=== PATIENT | male | born 1980 | race Caucasian/White ===

== ENCOUNTER 2017-01-20 09:21 | Inpatient (IN) | payer OTHER ==
--- NOTE | 2017-01-20 09:40 | CPEKG ---
Heart Rate: 60 RR Interval: 1000 P-R Interval: 132 QRSD Interval: 98 QT Interval: 432 QTC Interval: 432 P [place]: 67 QRS [place]: 19 T Wave [place]: -18 EKG Severity - ABNORMAL ECG - EKG Impression: SINUS RHYTHM EKG Impression: NONSPECIFIC REPOL ABNORMALITY, INFERIOR LEADS Electronically Signed By: Steve Spivey 20-Jan-2017 15:22:51
[2017-01-20 09:49] LABS: % IMMATURE GRANULYOCYTES 0.3 % (0.0-1.1); ABSOLUTE IMMATURE GRANULOCYTES 0.03 10^3/uL (0.00-0.10); ADD DIFF? NO; ADD MORPH? NO; ADD SCAN? YES; ATYPICAL LYMPHOCYTE FLAG 50 (0-99); FRAGMENT RBC FLAG 0 (0-99); HEMATOCRIT 45.5 % (40.0-51.0); HEMOGLOBIN 15.7 g/dL (13.7-17.5); LEFT SHIFT FLG 0 (0-99); LIPEMIA HEMOLYSIS FLAG 90 (0-99); MEAN CELL HEMOGLOBIN 30.5 pg (27.9-34.1); MEAN CELL HEMOGLOBIN CONCENTR. 34.5 g/dL (32.4-36.7); MEAN CELL VOLUME 88.5 fL (81.5-99.8); MEAN PLATELET VOLUME 10.1 fL (8.7-11.7); PLATELET CLUMPS FLAG 10 (0-99); PLATELET COUNT 211 10^3/uL (150-400); RED BLOOD CELL COUNT 5.14 10^6/uL (4.40-6.38); RED CELL DISTRIBUTION WIDTH 12.6 % (11.5-15.2)
--- NOTE | 2017-01-20 10:00 | EDPHY ---
General - History Smoking Status: Former smoker Narrative: CHIEF COMPLAINT: Chest pain HISTORY OF PRESENT ILLNESS: Patient complains of right-sided chest pain. This started 7:30 a.m. this morning. It was severe at the time. Radiates into the right arm and back. Steadily worsening over the past 2 hr. Mild shortness of breath. No cough at this time. Did have a recent viral illness this week. No vomiting but he did have some nausea. No diaphoresis. No recent travel, trauma or surgery. No history of venous thrombolic event. No previous chest pain. No previous cardiac workup. No other associated complaints or modifying factors. REVIEW OF SYSTEMS: Ten systems reviewed and are negative unless otherwise noted in the HPI PCP: Not yet established SPECIALISTS: None PAST MEDICAL HISTORY: None PAST SURGICAL HISTORY: None SOCIAL HISTORY: Former smoker 15 years ago. Occasional alcohol. Occasional marijuana. Originally from the . Most recently moved from [place] in September. 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 No wheezing, rhonchi or crackles Cardiovascular: Regular rate and rhythm. No murmur Gastrointestinal: Abdomen is soft and nontender Back: non-tender, no bony abnormalities Neurological: A&O, nonfocal, normal gait Skin: Warm and dry, no rash. No petechiae or purpura Extremities: Nontender, no pedal edema Psychiatric: Mood and affect normal DIFFERENTIAL DIAGNOSES: Including but not limited to ACS, pneumonia, PE, pleurisy, pericarditis MDM: 9:55 a.m. Right-sided chest pain with nonspecific repolarization on EKG. Vital signs are within normal limits. Auscultation is clear. Laboratory studies are pending. Case discussed with Dr. Spivey. awake overnight monitor ordered. 10:[address] Spivey that the patient's troponin is elevated. He has initiated a cardiac alert. He is evaluating the patient at this time. He is soon care the patient this time. Aspirin has been ordered. Please see his note for further care and disposition. EKG interpretation: Dr. Spivey SUPERVISION: Patient was evaluated and examined in conjunction with my secondary supervising physician as documented. We have both examined the patient. (Win Guadalupe) 10:20 a.m., notified about patient's elevated troponin. EKG reviewed. EKG shows subtle ST elevations in lead 1 and lead aVL with ST depression noted in 3 and AVF. Cardiac alert called. I evaluated the patient at the bedside. He received 324 mg of chewed aspirin. IV heparin ordered. Discussed diagnosis and plan of management with the patient. 10:30 a.m., spoke with Dr. Joe, mems process engineer. He evaluated the EKG. He is in agreement. He spoke with on-call biomass production manager Dr. Pantoja. Dr. Pantoja requested IV heparin and 600 mg of oral Plavix. This has been ordered. Dr. Pantoja plans to take this patient to the school laboratory technician shortly. There is currently a patient on the table finishing a pacemaker procedure. While in the ED, the patient will get an echocardiogram. However, his time to school laboratory technician will not be delayed for this study. 10:45 a.m., Dr. Joe, mems process engineer, currently at the bedside discussing management with patient. The patient at this time denies any chest pain. IV heparin is running. Plavix to be given shortly. 11:00 a.m., the patient was sent up to the cath lap with mems process engineer, Dr. Kang at the bedside. I spent a total of 42 minutes of critical care time in obtaining history, performing a physical exam, bedside monitoring of interventions, collecting and interpreting tests and discussion with consultants but not including time spent performing procedures. (Steve Spivey) - Diagnostics EKG Interpretation: EKG time is 9:39 a.m.; EKG shows a narrow complex sinus rhythm with ventricular rate of 60. ST elevations noted in [address] depressions in 3 and AVF. There is also a subtle ST depression in V1. Interpreted by me. (Steve Spivey) - Objective Vital Signs: Initial Vital Signs Temperature (C) 36.3 C 01/20/17 09:24 Heart Rate 63 01/20/17 09:24 Respiratory Rate 16 01/20/17 09:24 Blood Pressure 115/100 H 01/20/17 09:24 O2 Sat (%) 100 01/20/17 09:24 O2 Delivery Mode Room Air O2 (L/minute) 2 Allergies/Adverse Reactions: No Known Allergies Allergy (Unverified 01/20/17 09:28) Home Medications: Medication Instructions Recorded NK [No Known Home Meds] 01/20/17 Laboratory Results: Laboratory Results 01/21/17 04:52 01/21/17 04:52 01/21/17 06:03 TSH 4.780 uIU/mL H uIU/mL (0.465-4.680) Medications Given: Aspirin (Aspirin) 81 mg PO DAILY [facility] Stop: 07/20/17 08:59 Last Admin: 01/21/17 09:13 Dose: 81 mg Atorvastatin Calcium (Lipitor) 20 mg PO DAILY [facility] Stop: 07/20/17 08:59 Last Admin: 01/21/17 09:14 Dose: 20 mg Clopidogrel Bisulfate (Plavix) 75 mg PO DAILY [facility] Stop: 07/20/17 08:59 Last Admin: 01/21/17 09:14 Dose: 75 mg Discontinued Medications Aspirin (Aspirin) 324 mg PO EDNOW ONE Stop: 01/20/17 10:32 Last Admin: 01/20/17 10:49 Dose: 324 mg Aspirin (Aspirin) 324 mg PO EDNOW ONE Stop: 01/20/17 10:32 Last Admin: 01/20/17 10:54 Dose: Not Given Clopidogrel Bisulfate (Plavix) 600 mg PO EDNOW ONE Stop: 01/20/17 10:40 Last Admin: 01/20/17 10:51 Dose: 600 mg Heparin Sodium (Porcine) (Heparin Injection) 0 unit IVP EDNOW ONE PRN Reason: Protocol Stop: 01/20/17 10:33 Last Admin: 01/20/17 10:43 Dose: 4,200 i.unit Heparin Sodium (Porcine) (Heparin 50 Units/Ml (Premix)) 500 mls @ 0 mls/hr IV EDNOW ONE; Per Protocol PRN Reason: Protocol Stop: 01/20/17 10:33 Last Admin: 01/20/17 10:48 Dose: 500 mls Departure - Departure Disposition: To OP Cath/Surgery Clinical Impression: ST elevation VA (STEMI) Qualifiers: Involved coronary artery: unspecified coronary artery Qualified Code(s): I21.3 - ST elevation (STEMI) myocardial infarction of unspecified site Condition: Fair
[2017-01-20 10:12] LABS: ALANINE AMINOTRANSFERASE 43 IU/L (21-72); ALBUMIN 4.2 g/dL (3.5-5.0); ALKALINE PHOSPHATASE 54 IU/L (38-126); ANION GAP 15 mEq/L (8-16); ASPARTATE AMINOTRANSFERASE 32 IU/L (17-59); BILIRUBIN,TOTAL 0.4 mg/dL (0.1-1.4); CALCIUM 9.4 mg/dL (8.5-10.4); CARBON DIOXIDE 24 mEq/l (22-31); CHLORIDE 104 mEq/L (97-110); GLOMERULAR FILTRATION RATE > 60; GLUCOSE 136 mg/dL (70-100); POTASSIUM 4.3 mEq/L (3.5-5.2); SODIUM 143 mEq/L (134-144)
[2017-01-20 10:19] LABS: SCAN NEGATIVE
[2017-01-20] MEDS ORDERED: ASPIRIN 81 MG CHEWABLE TAB PO ONE ×2 (10:31)
[2017-01-20] MEDS ORDERED: ASPIRIN 81 MG CHEWABLE TAB ONE (10:32)
[2017-01-20] MEDS ORDERED: HEPARIN/DEXTROSE 500 ML IV ONE (10:32)
[2017-01-20] MEDS ORDERED: HEPARIN 10,000 UNIT/10 ML MDV IVP ONE (10:32)
[2017-01-20] MEDS ORDERED: CLOPIDOGREL BISULFATE 75 MG TAB PO ONE (10:39)
[2017-01-20] MEDS ORDERED: LIDOCAINE 1% 300 MG/30 ML SDV ONE (10:42)
[2017-01-20] MEDS ORDERED: IOPAMIDOL (ISOVUE-370) 150 ML BTL IV ONE (10:42)
[2017-01-20] MEDS ORDERED: fentaNYL 100 MCG/2 ML INJ ONE (10:42)
[2017-01-20] MEDS ORDERED: MIDAZOLAM 2 MG/2 ML VIAL ONE ×2 (10:42)
[2017-01-20] MEDS ORDERED: CLOPIDOGREL BISULFATE 75 MG TAB ONE (10:52)
[2017-01-20 11:14] LABS: APTT 32.9 SEC (23.0-38.0); INR 1.05 (0.83-1.16); PROTIME(PATIENT) 13.9 SEC (12.0-15.0)
[2017-01-20] MEDS ORDERED: HEPARIN 10,000 UNIT/10 ML MDV ONE (11:23)
[2017-01-20] MEDS ORDERED: IOPAMIDOL (ISOVUE 370) 100 ML BTL IV ONE (11:36)
--- NOTE | 2017-01-20 11:40 | GHP ---
[f rep st] HISTORY AND PHYSICAL DATE OF ADMISSION: 01/20/2017 CHIEF COMPLAINT: Right-sided chest pressure x3 and 0.5 hours, consistent with lateral MA. HISTORY OF PRESENT ILLNESS: The person is a 36-year-old gentleman with no previous cardiac problems. He has had migraines during his life. Normally, he can hike 2-3 miles with his or bicycle for 30 minutes with no problems. This morning, he awoke at 7:30 a.m. with right-sided chest pressure. He came to the emergency room and his initial EKG demonstrated ST elevation in the high lateral leads with reciprocal 2-[address] depression in the inferior leads. His 1st troponin was 4.8. He is curren tly still having 2/10 chest pressure and is quite anxious. He denies illicit drug use such as cocain e or methamphetamine use. He has no personal history of hypertension, hyperlipidemia, or diabetes. No family history of premature coronary artery disease. He reports no recent bleeding or surgeries. PAST MEDICAL HISTORY: Migraines. PAST SURGICAL HISTORY: None. HOME MEDICATIONS: None. ALLERGIES: No known drug allergies. SOCIAL HISTORY: The patient is . He quit tobacco 15 years ago. He has an occasional marijua na use. He denies illicit drugs such as cocaine or methamphetamine. He has rare alcohol intake. FAMILY HISTORY: Unremarkable for premature heart failure or clotting disorders. REVIEW OF SYSTEMS: The patient reports no headache, fevers, chills or GI bleed symptoms. Rest of 10 -point review of systems is negative. PHYSICAL EXAM: GENERAL: An anxious gentleman with 2/10 chest pain, tearful, but in no respiratory d istress. VITAL SIGNS: Pulse 115 and sinus, blood pressure 129/57, respirations 24. HEENT: Jugular venous pressure to 7 cm. Carotid pulses 2+ bilaterally with no obvious bruits. No thyromegaly note d. No nuchal rigidity. No cyanosis of his lips, or jaundice. LUNGS: Clear to auscultation bilater ally without rales, rhonchi, or wheezing. HEART: Heart is slightly tachycardic. Regular rate and r hythm with positive S4, but no murmurs or S3. ABDOMEN: Abdominal exam is soft and nontender. No gu arding or rebound. No ascites. EXTREMITIES: 2+ peripheral pulses, including femoral and pedal puls es. No edema noted. MUSCULOSKELETAL: No scoliosis. NEURO: Anxious affect. SKIN: No bleeding or cyanosis. DIAGNOSTIC STUDIES: EKG normal sinus rhythm with [address] elevation in lead 1 and aVL, 2-3 mm of S T depression in the inferior leads. LABS: White count 10.9, hematocrit 46, platelets 211,000, MCV 89. Sodium 143, potassium 4.3, chlori de 104, bicarb 24, BUN 14, creatinine 1.0, glucose 136. LFTs within normal limits. Troponin 4.8. IMPRESSION: A 36-year-old gentleman with only past medical history of migraines, with 3 and 0.5 hour s of right-sided chest pain and abnormal ST elevation, EKG consistent with lateral myocardial infarct ion. I am concerned he has coronary obstruction and needs to go to the woven label designer. PLAN: 1. We will give him Plavix 600 mg p.o. x1 in the emergency room. 2. We will give him aspirin 325 mg p.o. x1. 3. We will give him 1 bolus of heparin. 4. We will take him urgently to the woven label designer from the emergency room for coronary angiography and ho peful stenting of the culprit vessels. 5. We will check a urine tox screen during this hospitalization, and cholesterol levels. 6. More recommendations once heart catheterization is done. Risks, benefits, and alternatives to ca theterization were explained to the patient and he wishes to proceed. /[id number]/MODL
[2017-01-20] MEDS ORDERED: ONDANSETRON 4 MG/2 ML VIAL IVP PRN (11:45)
[2017-01-20] MEDS ORDERED: ATROPINE SULFATE 1 MG/10 ML SYR IVP PRN (11:45)
[2017-01-20] MEDS ORDERED: NITROGLYCERIN 0.4 MG BTL SL PRN (11:45)
[2017-01-20] MEDS ORDERED: HYDROCODONE/APAP 5/325 TAB PO PRN (11:45)
[2017-01-20] MEDS ORDERED: OXYCODONE/APAP 5/325 TAB PO PRN (11:45)
--- NOTE | 2017-01-20 12:10 | ASMTCASEMG ---
Living Arrangements What is your living Answers: With Spouse arrangement? Who do you live with? Type Of Residence What kind of residence do Answers: Unknown you live in? Discharge Plan Comments Coordination Status Comments Notes: Patient lives with his Francia Zepeda and three young children here in [place]; recently moved here from [facility] in September. Originally from the . Date Signed: 01/20/2017 12:10 PM Electronically Signed By:Michelle Em RN
--- NOTE | 2017-01-20 12:22 | CPIP ---
[f rep st] INVASIVE CARDIAC PROCEDURE DATE OF PROCEDURE: 01/20/2017 INDICATION FOR PROCEDURE: STEMI alert. PROCEDURE PERFORMED: 1. Nonselective right groin sheathogram. 2. Bilateral selective coronary angiography. 3. Left heart catheterization. 4. Left ventriculogram. BRIEF HISTORY: This is a 36-year-old male with no significant past medical history. Patient says he woke up this morning with significant crushing chest pain. The patient came to the emergency room for further evaluation, was found to have elevated troponins of 4.[address] elevations in I, aVL as well as inferior ST depressions in II, III and aVF. Given these findings, patient was consented for immediate heart catheterization. DESCRIPTION OF PROCEDURE: After informed consent, the patient was brought to [facility] where the right groin was prepped and draped in a sterile fashion. Using local lidocaine, a short 6-Norwegian sheath was placed in the right femoral artery , verified angiographically. Through this 6-Norwegian sheath, a JL4 catheter was advanced to the right coronary artery. Images of the right coronary artery revealed widely patent os, proximal, mid, distal RCA, RPD and RPLS. The JL4 catheter was then removed. An EBU 3.5 guide catheter was then advanced to the left coronary artery which then revealed short, normal left main. Left circumflex artery appeared to be healthy and free of disease and branched off into a marginal 1, marginal 2 artery. The LAD was a long vessel which wraps around the apex. The LAD gave off multiple diagonal arteries which were small, other than 1 medium size one in the midbody, and all were healthy and free of disease. The LAD itself terminated to a distal vessel which was healthy and free of disease. After obtaining images, the EBU guide catheter was removed. A pigtail catheter was advanced to the left ventricle. LVEDP is 15 mmHg. Left ventriculogram obtained in the SAENZ projection showed EF of 65% with no wall motion abnormalities. No pullback gradient into the aorta. Pigtail catheter was removed over the guidewire. Right groin was closed with a 6-Norwegian Angio- Seal. The patient tolerated the procedure well. No complications. IMPRESSION: 1. Essentially normal coronary arteries. 2. Normal ejection fraction. PLAN: Given the fact the patient has had significant discomfort, obviously elevated troponins and ST elevations, we will obtain a stat CTA of the chest to rule out any other aortic pathology. The patient will be admitted to ICU for further evaluation. /[id number]/MODL MTDD
--- NOTE | 2017-01-20 12:22 | ASMTCMCOM ---
CM Note CM Note Notes: Patient presented to the ED from [facility] for right sided chest pain that started this morning. Patient admitted for cardiac monitoring and further assessment. Patient's troponin was elevated and EKG was abnormal. Patient was assessed by Dr Joe in the ED and taken to the mechanical shop laborer with Dr. Abdul. Patient had called his , Francia Zepeda ([phone]) from the ED and she arrived with her three young children (a 5-year-old boy and 2-year-old twins (boy and girl) shortly after patient had already transported to the mechanical shop laborer. This CM met Francia at the ED entrance and assisted her to the ICU waiting area; provided support and updates on patient's status and plan of care. Children were provided coloring books, crayons, juices, and crackers. Francia said she would like to speak to someone from our Spiritual Support Services so this CM paged the on-call Jewel Inserter, Carmine Villavicencio; he will arrive shortly to provide non-taoism support. Francia and the patient recently moved to [place] from [facility] in September. Originally they are from the . 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 Anticipate patient may need a PCP, follow-up coordination with cardiology. Exact DC needs unknown. CM to follow. Date Signed: 01/20/2017 12:22 PM Electronically Signed By:Michelle Em RN
[2017-01-20 15:48] LABS: PHENCYCLIDINE URINE BCH < 6 ng/ml (NEGATIVE); PHENCYCLIDINE URINE BCH NEGATIVE (NEGATIVE); TETRAHYDROCANNABINOL URINE < 5 ng/mL (NEGATIVE); TETRAHYDROCANNABINOL URINE NEGATIVE (NEGATIVE)
[2017-01-21 05:10] LABS: HEMATOCRIT 45.5 % (40.0-51.0); HEMOGLOBIN 15.8 g/dL (13.7-17.5); MEAN CELL HEMOGLOBIN 30.3 pg (27.9-34.1); MEAN CELL HEMOGLOBIN CONCENTR. 34.7 g/dL (32.4-36.7); MEAN CELL VOLUME 87.3 fL (81.5-99.8); RED BLOOD CELL COUNT 5.21 10^6/uL (4.40-6.38); RED CELL DISTRIBUTION WIDTH 12.6 % (11.5-15.2)
[2017-01-21 05:32] LABS: ALANINE AMINOTRANSFERASE 43 IU/L (21-72); ALBUMIN 3.8 g/dL (3.5-5.0); ALKALINE PHOSPHATASE 49 IU/L (38-126); ANION GAP 13 mEq/L (8-16); ASPARTATE AMINOTRANSFERASE 70 IU/L (17-59); BILIRUBIN,TOTAL 0.5 mg/dL (0.1-1.4); CALCIUM 9.3 mg/dL (8.5-10.4); CARBON DIOXIDE 23 mEq/l (22-31); CHLORIDE 106 mEq/L (97-110); CREATININE 0.8 mg/dL (0.7-1.3); GLOMERULAR FILTRATION RATE > 60; GLUCOSE 98 mg/dL (70-100); POTASSIUM 4.2 mEq/L (3.5-5.2); SODIUM 142 mEq/L (134-144); TOTAL PROTEIN 6.7 g/dL (6.3-8.2)
--- NOTE | 2017-01-21 08:59 | PDCARPN ---
Cardiology Progress Note Chief Complaint: CP/STEMI Assessment/Plan: Assessment: STEMI w/o CAD Plan: 01/21/17 08:56 Pt had essentially normal cath with CTA that showed no dissection Check echo today Possibly transient thrombus/embolus to coronary Start plavix/ASA Start statin No BB given low BP OOB Tox screen normal (+benzo but pt received in lab) Reviewed/Discussed With: other (RN) Time Spent With Patient: 25 min Objective: Vital Signs (8 Hrs) Temp Pulse Resp BP Pulse Ox 01/21/17 07:30 36.7 C 97 17 104/71 96 Intake/Output (24 Hrs) 01/20/17 01/21/17 01/22/17 05:59 05:59 05:59 Intake Total 300 Output Total 700 Balance -400 Intake: Oral (ml) 300 Output: Urine (ml) 700 Urinal 700 Other: Weight 70.307 kg Number of Voids Urinal 3 Result Diagrams: 01/21/17 04:52 01/21/17 04:52 Cardiac Labs: Cardiac Lab Results (72 Hrs) 01/21/17 01/20/17 04:52 17:00 Troponin I 8.020 H 20.100 H - Physical Exam Constitutional: healthy appearing Eyes: PERRL Ears, Nose, Mouth, Throat: moist mucous membranes Cardiovascular: regular rate and rhythm Peripheral Pulses: 1+: femoral (R), femoral (L) Respiratory: clear to auscultate bilat Gastrointestinal: normoactive bowel sounds Genitourinary: no suprapubic tenderness Skin: no rashes Musculoskeletal: no muscular tenderness Neurologic: AAOx3 Psychiatric: cooperative Lymph, Heme, Immunologic: no lymphadenopathy ICD10 Worksheet Patient Problems: Problems Problem Status Onset ST elevation [place] (STEMI) Acute
[2017-01-21] MEDS: ASPIRIN 81 MG CHEWABLE TAB PO SCH (09:13)
[2017-01-21] MEDS: ATORVASTATIN CALCIUM 20 MG TAB PO SCH (09:14)
[2017-01-21] MEDS: CLOPIDOGREL BISULFATE 75 MG TAB PO SCH (09:14)
[2017-01-21 09:15] LABS: ALANINE AMINOTRANSFERASE 44 IU/L (21-72); ALKALINE PHOSPHATASE 54 IU/L (38-126); ASPARTATE AMINOTRANSFERASE 71 IU/L (17-59); BILIRUBIN,TOTAL 0.4 mg/dL (0.1-1.4); BILIRUBIN-CONJUGATED 0.2 mg/dL (0.0-0.5); BILIRUBIN-UNCONJUGATED 0.2 mg/dL (0.0-1.1); CHOLESTEROL 124 mg/dL (140-200); CHOLESTEROL/HDL RATIO 4.96 RATIO (1.00-4.97); HIGH DENSITY LIPOPROTEIN 25 mg/dL (40-65); LDL/HDL RATIO 3.36 RATIO (1.00-3.64); LOW DENSITY LIPOPROTEIN 84 mg/dL (70-100); NON-HIGH DENSITY LIPOPROTEIN 99 mg/dL (90-129); TOTAL PROTEIN 7.1 g/dL (6.3-8.2); TRIGLYCERIDE 75 mg/dL (40-150); VERY LOW DENSITY LIPOPROTEINS 15 mg/dL (8-25)
[2017-01-21] MEDS: ACETAMINOPHEN 325 MG TAB PO PRN (22:00)
[2017-01-22] MEDS: CLOPIDOGREL BISULFATE 75 MG TAB PO SCH (08:22)
[2017-01-22] MEDS: ASPIRIN 81 MG CHEWABLE TAB PO SCH (08:22)
[2017-01-22] MEDS: ACETAMINOPHEN 325 MG TAB PO PRN (08:22)
[2017-01-22] MEDS: ATORVASTATIN CALCIUM 20 MG TAB PO SCH (08:22)
[2017-01-22] MEDS ORDERED: FLU VACC QS 2017-18 (3YR+)/PF 0.5 ML SYR (FLUARIX QUAD) IM ONE (09:34)
--- NOTE | 2017-01-22 11:13 | ECHO ---
[email or web address] [address] [address] Main: [phone] Fax: [email or web address] Echocardiogram Name: NEDA HIGGINS MR#: [id number] Study Date: 01/21/2017 Study Time: 10:47 AM Date of : 1980 Age: 36 year(s) Height: 167.6 cm (66 in.) Weight: 70.31 kg (155 lb.) BSA: 1.79 m2 Gender: Male Examination: Echo Indication: CP/STEMI Image Quality: Contrast: Requested by: Remington Pantoja BP: 109 mmHg/61 mmHg Heart Rate: Rhythm: Indication: CP/STEMI Procedure Staff Crozer: Maria Guadalupe Delarosa Physician: Requesting Provider: Measurements: Chambers Valvular Assessment AV/MV Valvular Assessment TV/PV Normal Normal Normal Name Value Range Name Value Range Name Value Range Ao Malka (MM): 3.6 cm (2.2 cm-3.7 AV meanP mmHg ( - ) cm) MV E Vmax: 0.62 m/s ( - ) IVSd (2D): 1.0 cm (0.6 cm-1.1 MV A Vmax: 0.68 m/s ( - ) cm) MV E/A: 0.91 ( - ) LVDd (2D): 4.5 cm (4.2 cm-5.9 cm) LVDs (2D): 3.1 cm (2.1 cm-4 cm) LVPWd (2D): 1.1 cm (0.6 cm-1 cm) LVEF (MOD4): 73 % (>=55 %) Continued Measurements: Chambers Valvular Assessment AV/MV Name Value Name Value LADs: 3.2 cm MV E' Septal: 0.07 m/s LADs Lon.0 cm MV E/E' Septal: 8.50 LA Area: 9.2 cm2 MV E/E' Lateral: 5.50 Additional Vessels Name Value Ao Ascendin.1 cm Patient: NEDA HIGGINS Study Date: 01/21/2017 Page 1 of 2 10:47 AM Findings: Left Ventricle: Normal size left ventricle. No LV hypertrophy. Global hypercontractility of the left ventricle. EF is 73 %. No regional wall motion abnormality. Right Ventricle: Normal size right ventricle. Left Atrium: The left atrium is normal in size. Right Atrium: The right atrium is normal in size. Mitral Valve: The mitral valve is normal in appearance and function. Trivial mitral valve regurgitation. Aortic Valve: The aortic valve is normal in appearance and function. Mild aortic valve regurgitation is present. Tricuspid Valve: The tricuspid valve is normal in appearance and function. Trivial tricuspid valve regurgitation. Pulmonic Valve: The pulmonic valve is normal in appearance and function. Trivial pulmonic valve regurgitation. Aorta: The aorta is normal. Pericardium: No pericardial effusion. (No Signature Object) Patient: NEDA HIGGINS Study Date: 01/21/2017 Page 2 of 2 10:47 AM [id number]
--- NOTE | 2017-01-22 11:39 | CPEKG ---
Heart Rate: 89 RR Interval: 674 P-R Interval: 152 QRSD Interval: 90 QT Interval: 380 QTC Interval: 463 P [place]: 68 QRS [place]: 40 T Wave [place]: 41 EKG Severity - NORMAL ECG - EKG Impression: SINUS RHYTHM EKG Impression: COMPARED WITH 01/20/2017 AT 9:39 A.M., INFERIOR ST ABNORMALITIES AND ST EKG Impression: ELEVATION IN 1 AND AVL HAVE RESOLVED, ALTHOUGH AVL IS STILL MINIMALLY ELEVATED. Electronically Signed By: Brittany Washington 22-Jan-2017 17:24:53
[2017-01-22 11:43] VITALS: BP 110/74; PULSE 84; RESP 19; TEMP 97.3; O2SAT 95
--- NOTE | 2017-01-22 15:14 | GDS ---
[f rep st] DISCHARGE SUMMARY DISCHARGE DIAGNOSIS: Elevated troponin secondary to either transient thrombus/embolus versus coronar y vasospasm. HOSPITAL COURSE: For detailed H and P, please see prior dictation. Briefly, the patient is a 36-yea r-old male with a history of migraines, who presented to the hospital with angina and EKG concerning for a lateral CT. He felt well until about a week prior to his admission. At the time, he developed flu-like symptoms including fever and myalgias. He was starting to feel better on Sunday, but then awoke Sunday morning at 7 a.m. with chest pain radiating into his arms. This persisted for an hour , at which time he then decided to proceed to the ER. He was given aspirin in the ER, which did comp letely eliminate his discomfort. His EKG suggested a lateral CT and therefore, he was taken urgently to the cardiac catheterization laboratory by Dr. Remington Pantoja. He was found to have normal juanis naries with preserved ejection fraction of 65%. He was without significant disease. He was then sen t for a stat CTA of the chest to rule out pulmonary embolus and other aortic pathology. This was neg ative for pulmonary embolus or aortic dissection. The following day, an echocardiogram revealed preserved LV function with an ejection fraction of 73%. There were no significant valvular or wall motion abnormalities. He had ST changes on his EKG that resolved by repeat EKG the day of discharge. His troponin on admission was 4.75 and peaked at 20.1. Prior to discharge, his troponin trended down to 8.02. He has not had any further chest discomfort since admission to the hospital. He does have some mild tenderness over his right groin, which is c lean and intact without any evidence of hematoma or infection. PHYSICAL EXAMINATION: GENERAL: Patient appears in no acute distress. VITAL SIGNS: Blood pressure 110/74, heart rate 84, oxygen saturation of 95% on room air, afebrile. LUNGS: Clear to auscultation . No wheezes, rhonchi, or crackles auscultated. CARDIAC: Regular rate and rhythm without any signi ficant murmurs, rubs, or gallops appreciated. RIGHT GROIN: Where access was obtained for the angiog amado, is clean and intact without any evidence of infection or hematoma. LABORATORY: Total cholesterol 84, HDL 25, triglycerides 75. Troponin 4.75, 20.1, 8.02. DISCHARGE MEDICATIONS: Plavix 75 mg daily x1 month at a minimum, Lipitor 20 mg daily, aspirin 81 mg daily. PLAN: The patient was admitted to the hospital with angina and positive troponin, concerning for lat eral myocardial infarction. His angiogram was negative for significant coronary disease. The differ ential at this time includes a plaque rupture which was transient, versus vasospastic angina. He nolberto l be treated for myocardial infarction with aspirin, Plavix, and statin therapy. He was not started on a beta michaelle or ISAURO inhibitor secondary to hypotension. If he has persistent chest discomfort, consider adding an antianginal such as Norvasc 2.5 mg daily. He has been on a beta michaelle for migra jia in the past and this did cause hypotension. He has been given groin precautions and will follow up with Dr. Pantoja on February 07 at 10:45 a.m. The patient does have a history of migraines and has taken sumatriptan in the past. This can cause v asospastic angina and therefore, I have recommended he not take this. The last time he has needed to take it was over 6 months ago. Greater than 30 minutes was spent coordinating the patient's care and plan today. /[id number]/MODL
--- NOTE | 2017-01-22 15:30 | ASDISCHSUM ---
Discharge Information Plan Status:Home with No Needs Medically Cleared to Leave:01/21/2017 Discharge Date:01/22/2017 12:27 PM CM D/C Disposition:Home, Routine, Self-Care ADT D/C Disposition:Home, Routine, Self-Care Projected Discharge Date:01/22/2017 12:00 AM Transportation at D/C:Family Discharge Delay Reason: Follow-Up Date:01/22/2017 12:00 AM Discharge Slot: Final Diagnosis:STEMI Placement Information Patient Contact Information Contact Name:SEN Relationship: Address:[address] [place] Work Phone: [facility]:[place] Alternate Phone: [facility]/Zip Code:[place] [address] Email: Financial Information Financial Class:HMO and PPO Plans Primary Plan Desc:[employer] Primary Plan Number:[id number] Secondary Plan Desc: Secondary Plan Number: Assessment Information [facility] Initial CM Assessment Living Arrangements What is your living Answers: With Spouse arrangement? Who do you live with? Type Of Residence What kind of residence do Answers: Unknown you live in? Discharge Plan Comments Coordination Status Comments Notes: Patient lives with his Francia Zepeda and three young children here in [place]; recently moved here from [facility] in September. Originally from the . Date Signed: 01/20/2017 12:10 PM Electronically Signed By:Michelle Em RN [facility] CM Progress Note CM Note CM Note Notes: Patient presented to the ED from [facility] for right sided chest pain that started this morning. Patient admitted for cardiac monitoring and further assessment. Patient's troponin was elevated and EKG was abnormal. Patient was assessed by Dr Joe in the ED and taken to the [facility] with Dr. Abdul. Patient had called his , Francia Zepeda ([phone]) from the ED and she arrived with her three young children (a 5-year-old boy and 2-year-old twins (boy and girl) shortly after patient had already transported to the [facility]. This CM met Francia at the ED entrance and assisted her to the ICU waiting area; provided support and updates on patient's status and plan of care. Children were provided coloring books, crayons, juices, and crackers. Francia said she would like to speak to someone from our Spiritual Support Services so this CM paged the on-call [employer], Carmine Villavicencio; he will arrive shortly to provide non-confucianism support. Francia and the patient recently moved to [place] from [facility] in September. Originally they are from the . 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 Anticipate patient may need a PCP, follow-up coordination with cardiology. Exact DC needs unknown. CM to follow. Date Signed: 01/20/2017 12:22 PM Electronically Signed By:Michelle Em RN LACE LACE Acuity / Level of Care Answers: Was the patient admitted to hospital via the emergency department? 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 Answers: Yes Patient to Obtain Answers: Independently Medications Transportation Arranged Answers: Family/Friends Transport will Pick (Date 01/22/2017 12:00 AM & Time) Family Notified Answers: Yes Notes: Family to transport Discharge Comments Notes: Patient has been discharged and will f/u at [facility]. NO other discharge needs. Date Signed: 01/22/2017 01:52 PM Electronically Signed By:Vijaya Almeida LCSW Intervention Information
== END 2017-01-22 12:27 | disposition home or self-care (01) | DRG 282 ==
LOC: F2N 12:05 → OBSVTOIN 01-21 09:39
PROVIDERS: ADMIT Internal Medicine Cardiovascular Disease; ATTEND Internal Medicine Cardiovascular Disease
PROC: B2111ZZ Fluoroscopy of Multiple Coronary Arteries using Low Osmolar Contrast (ICD-10-PCS; principal; 2017-01-21)
PROC: 4A023N7 Measurement of Cardiac Sampling and Pressure, Left Heart, Percutaneous Approach (ICD-10-PCS; principal; 2017-01-21)
PROC: B2151ZZ Fluoroscopy of Left Heart using Low Osmolar Contrast (ICD-10-PCS; principal; 2017-01-21)
DX: I21.29 ST elevation (STEMI) myocardial infarction involving other sites (principal); I20.1 Angina pectoris with documented spasm; G43.909 Migraine, unspecified, not intractable, without status migrainosus
CPT/HCPCS: 80307; 96365; C1760; C1887; G0008; G0378; G0480; J1644; J2250; J3010; Q9967

== ENCOUNTER 2017-01-22 20:53 | Emergency (ER) | payer OTHER ==
[2017-01-22 21:22] VITALS: TEMP 98.6
--- NOTE | 2017-01-22 21:44 | EDPHY ---
H & P Stated Complaint: LOWER ABDOMINAL PAIN, LOWER BACK PAIN Time Seen by Provider: 01/22/17 21:43 HPI/ROS: HPI: This is a 36-year-old male presents with Chief Complaint: LOWER ABDOMINAL PAIN, LOWER BACK PAIN Location: Lower back Quality: Pain Duration: 1-2 days Signs and Symptoms: no fever, no nausea, no vomiting, no hematemesis, no blood in stool, + abdominal bloating, no diarrhea, no back pain, no urinary symptoms, no testicular/groin pain, no indigestion, no chest pain, no shortness of breath Timing: Worsening Severity: [id number] Context: Patient was recently hospitalized at this hospital 2 days ago for elevated troponin with normal cardiac catheterization and CTA chest on 01/20 showing no pulmonary embolism/aortic dissection, echocardiogram on 01/21 showed normal EF. Deemed to be transient embolus/thrombus and/or coronary vasospasms. Patient reports that the day after his catheterization he had some lower back pain that wraps around bilaterally to lower abdomen. Patient was discharged from the hospital that. Reports he is taking the statin, beta-michaelle, Plavix, aspirin as directed. Day of discharge she did have 2 bowel movements that were small and hard in nature. + flatus. This pain has continued to worsen to the point that he needed to take 2 Tylenol today. Patient is eating and drinking normally but when questioned further, admits he feels more bloated than normal. Ambulatory without any deficits. Patient denies chest pain, shortness of breath, lower extremity edema. no prior hx low back pain. Modifying Factors: Tylenol Comment: ROS: see HPI Constitutional: No fever, no chills, no weight loss Eyes: No blurred vision Respiratory: No shortness of breath, no cough Cardiovascular: No chest pain, no palpitations Gastrointestinal: No nausea, no vomiting, no diarrhea, no hematemesis, no blood in stool Genitourinary: No dysuria, no blood in urine Extremities: No myalgias, no edema Neurologic: No weakness, no numbness Skin: No rashes, no petechiae Hematologic: No bruising, no bleeding MEDICAL/SURGICAL/SOCIAL HISTORY: Medical history: MIGRAINES Surgical history: HEART CATH Social history: . CONSTITUTIONAL: Well-appearing adult white male, awake and alert, no obvious distress HEENT: Atraumatic and normocephalic. NECK: supple, No meningismus. Cardiovascular: Normal S1/S2, regular rate, regular rhythm, without murmur rub or gallop. PULMONARY/CHEST: Symmetrical and nontender. no crepitus. Clear to auscultation bilaterally. Good air movement. No accessory muscle usage. ABDOMEN: Soft, nondistended, nontender, no ecchymosis. PELVIC: no pain with rocking; bilateral hips flexion 125 degrees, extension 30 degrees, with no pain internal rotation and no pain external rotation. BACK: No midline tenderness, bilateral reproducible lumbar mild paraspinous muscle tenderness, no paraspinous spasm, deep tendon reflexes 2/2, no pain with straight leg raise EXTREMITIES: 2/2 pulses, no deformities, no clubbing, no cyanosis or edema. NEUROLOGICAL: no focal neuro deficits. GCS 15. Light touch sensation intact. Ambulatory without deficits SKIN: Warm and dry, no erythema. no rash. Good capillary refill. Source: Patient Exam Limitations: No limitations - Personal History Current Tetanus Diphtheria and Acellular Pertussis (TDAP): Yes Tetanus Vaccine Date: LESS THAN 10 YEARS - Medical/Surgical History Hx Asthma: No Hx Chronic Respiratory Disease: No Hx Diabetes: No Hx Cardiac Disease: No Hx Renal Disease: No Hx Cirrhosis: No Hx Alcoholism: No Hx HIV/AIDS: No Hx Splenectomy or Spleen Trauma: No Other PMH: MIGRAINES, HEART CATH, - Social History Smoking Status: Former smoker Constitutional: Initial Vital Signs Temperature (C) 37.0 C 01/22/17 21:19 Heart Rate 99 01/22/17 21:19 Respiratory Rate 18 01/22/17 21:19 Blood Pressure 116/75 01/22/17 21:19 O2 Sat (%) 97 01/22/17 21:19 O2 Delivery Mode Room Air Allergies/Adverse Reactions: No Known Allergies Allergy (Verified 01/22/17 21:18) Home Medications: Medication Instructions Recorded Aspirin [Aspirin 81mg (*)] 81 mg PO DAILY tab.chew 01/22/17 Atorvastatin Calcium [Lipitor 20 20 mg PO DAILY #30 tab 01/22/17 mg (*)] Clopidogrel Bisulfate [Plavix (*)] 75 mg PO DAILY #30 tab 01/22/17 Medical Decision Making - Diagnostics Imaging Results: Imaging Impressions Lumbar Spine X-Ray 01/22/17 21:59 Impression: 1. No compression fractures or spondylolisthesis. 2. Mild constipation. ED Course/Re-evaluation: Labs, IV fluids, CT abdomen and pelvis scan, lumbar sacral x-rays ordered Given 1 L normal saline IV morphine called by Dr. Miguelito Foster who advised CT A/P scan showed no signs of retroperitoneal hemorrhage, obstruction, colitis, appendicitis, peritonitis. Lumbar sacral x-ray show moderate stool burden and no significant DDD appears etiology MS and constipation patient advises has Miralax at home labs reviewed and unremarkable This patient was seen under the supervision of my secondary supervising physician. I evaluated care for this patient independently. Patient's presentation, labs/imaging, treatment and plan of care were discussed with secondary supervising physician. Differential Diagnosis: Abdominal pain including but not limited to appendicitis, cholecystitis, gastritis and urinary tract infection. Back pain including but not limited to muscular pain, herniated disc, spine fracture, intra-abdominal causes and urinary tract infection. - Data Points Laboratory Results: Laboratory Results 01/22/17 22:15 01/22/17 22:15 01/22/17 01/22/17 01/22/17 23:31 22:15 22:15 WBC 13.05 10^3/uL H 10^3/uL (3.80-9.50) RBC 4.90 10^6/uL 10^6/uL (4.40-6.38) Hgb 15.0 g/dL g/dL (13.7-17.5) Hct 43.2 % % (40.0-51.0) MCV 88.2 fL fL (81.5-99.8) MCH 30.6 pg pg (27.9-34.1) MCHC 34.7 g/dL g/dL (32.4-36.7) RDW 12.3 % % (11.5-15.2) Plt Count 250 10^3/uL 10^3/uL (150-400) MPV 10.1 fL fL (8.7-11.7) Neut % (Auto) 66.8 % % (39.3-74.2) Lymph % (Auto) 21.7 % % (15.0-45.0) [place] % (Auto) 8.0 % % (4.5-13.0) Eos % (Auto) 2.7 % % (0.6-7.6) Baso % (Auto) 0.4 % % (0.3-1.7) Nucleat RBC Rel Count 0.0 % % (0.0-0.2) Absolute Neuts (auto) 8.73 10^3/uL H 10^3/uL (1.70-6.50) Absolute Lymphs (auto) 2.83 10^3/uL 10^3/uL (1.00-3.00) Absolute Monos (auto) 1.04 10^3/uL H 10^3/uL (0.30-0.80) Absolute Eos (auto) 0.35 10^3/uL 10^3/uL (0.03-0.40) Absolute Basos (auto) 0.05 10^3/uL 10^3/uL (0.02-0.10) Absolute Nucleated RBC 0.00 10^3/uL 10^3/uL (0-0.01) Immature Gran % 0.4 % % (0.0-1.1) Immature Gran # 0.05 10^3/uL 10^3/uL (0.00-0.10) Sodium 140 mEq/L mEq/L (134-144) Potassium 4.2 mEq/L mEq/L (3.5-5.2) Chloride 101 mEq/L mEq/L (97-110) Carbon Dioxide 23 mEq/l mEq/l (22-31) Anion Gap 16 mEq/L mEq/L (8-16) BUN 16 mg/dL mg/dL (7-23) Creatinine 1.0 mg/dL mg/dL (0.7-1.3) Estimated GFR > 60 Glucose 99 mg/dL mg/dL (70-100) Calcium 9.4 mg/dL mg/dL (8.5-10.4) Total Bilirubin 0.3 mg/dL mg/dL (0.1-1.4) Conjugated Bilirubin 0.2 mg/dL mg/dL (0.0-0.5) Unconjugated Bilirubin 0.1 mg/dL mg/dL (0.0-1.1) AST 37 IU/L IU/L (17-59) ALT 36 IU/L IU/L (21-72) Alkaline Phosphatase 60 IU/L IU/L (38-126) Total Protein 7.1 g/dL g/dL (6.3-8.2) Albumin 4.1 g/dL g/dL (3.5-5.0) Lipase 99 IU/L IU/L (23-300) Urine Color Pending Urine Appearance Pending Urine pH Pending Ur Specific [place] Pending Urine Protein Pending Urine Ketones Pending Urine Blood Pending Urine Nitrate Pending Urine Bilirubin Pending Urine Urobilinogen Pending Ur Leukocyte Esterase Pending Urine Glucose Pending Medications Given: Discontinued Medications Sodium Chloride (Ns) 1,000 mls @ 0 mls/hr IV EDNOW ONE; Wide Open PRN Reason: Protocol Stop: 01/22/17 22:00 Last Admin: 01/22/17 22:30 Dose: 1,000 mls Morphine Sulfate (Morphine) 4 mg IVP EDNOW ONE Stop: 01/22/17 22:01 Last Admin: 01/22/17 22:35 Dose: Not Given Departure - Departure Disposition: Home, Routine, Self-Care Clinical Impression: Constipation Qualifiers: Constipation type: unspecified constipation type Qualified Code(s): K59.00 - Constipation, unspecified Strain of lumbar paraspinal muscle Qualifiers: Encounter type: initial encounter Qualified Code(s): S39.012A - Strain of muscle, fascia and tendon of lower back, initial encounter Condition: Good Instructions: Polyethylene Glycol 3350 (By mouth), Constipation (DC), Low Back Strain (ED), Lower Back Exercises (ED) Additional Instructions: Keep scheduled follow up appointment with cardiology in February. Referrals: Remington aPntoja MD [Medical Doctor] - As per Instructions
[2017-01-22] MEDS ORDERED: NS 1,000 ML IV ONE (21:59)
--- NOTE | 2017-01-22 22:15 | CPEKG ---
Heart Rate: 98 RR Interval: 612 P-R Interval: 152 QRSD Interval: 94 QT Interval: 376 QTC Interval: 481 P Borger: 56 QRS Borger: 7 T Wave Borger: 32 EKG Severity - BORDERLINE ECG - EKG Impression: SINUS RHYTHM EKG Impression: BORDERLINE PROLONGED QT INTERVAL Electronically Signed By: Geoff Lawler 22-Jan-2017 22:46:41
[2017-01-22 22:28] LABS: % IMMATURE GRANULYOCYTES 0.4 % (0.0-1.1); ABSOLUTE IMMATURE GRANULOCYTES 0.05 10^3/uL (0.00-0.10); ADD DIFF? NO; ADD MORPH? NO; ADD SCAN? NO; ATYPICAL LYMPHOCYTE FLAG 40 (0-99); FRAGMENT RBC FLAG 0 (0-99); HEMATOCRIT 43.2 % (40.0-51.0); LEFT SHIFT FLG 0 (0-99); LIPEMIA HEMOLYSIS FLAG 90 (0-99); MEAN CELL HEMOGLOBIN 30.6 pg (27.9-34.1); MEAN CELL HEMOGLOBIN CONCENTR. 34.7 g/dL (32.4-36.7); MEAN CELL VOLUME 88.2 fL (81.5-99.8); MEAN PLATELET VOLUME 10.1 fL (8.7-11.7); PLATELET CLUMPS FLAG 0 (0-99); PLATELET COUNT 250 10^3/uL (150-400); RED CELL DISTRIBUTION WIDTH 12.3 % (11.5-15.2)
[2017-01-22] MEDS ORDERED: IOPAMIDOL (ISOVUE-300) 100 ML BTL ONE (22:30)
[2017-01-22 22:56] LABS: ALANINE AMINOTRANSFERASE 36 IU/L (21-72); ALBUMIN 4.1 g/dL (3.5-5.0); ALKALINE PHOSPHATASE 60 IU/L (38-126); ANION GAP 16 mEq/L (8-16); ASPARTATE AMINOTRANSFERASE 37 IU/L (17-59); BILIRUBIN,TOTAL 0.3 mg/dL (0.1-1.4); BILIRUBIN-CONJUGATED 0.2 mg/dL (0.0-0.5); BILIRUBIN-UNCONJUGATED 0.1 mg/dL (0.0-1.1); CALCIUM 9.4 mg/dL (8.5-10.4); CARBON DIOXIDE 23 mEq/l (22-31); CHLORIDE 101 mEq/L (97-110); GLOMERULAR FILTRATION RATE > 60; GLUCOSE 99 mg/dL (70-100); POTASSIUM 4.2 mEq/L (3.5-5.2); SODIUM 140 mEq/L (134-144); TOTAL PROTEIN 7.1 g/dL (6.3-8.2)
[2017-01-22 23:56] VITALS: BP 133/86; PULSE 92; RESP 16; O2SAT 96
[2017-01-22 23:57] LABS: COLOR PALE YELLOW; LEUKOCYTE ESTERASE,URINE NEGATIVE (NEGATIVE); NITRITE,URINE NEGATIVE (NEGATIVE)
[2017-01-23 00:04] LABS: WBC,URINE NONE SEEN /hpf (0-3)
== END 2017-01-23 00:04 | disposition home or self-care (01) ==
DX: K59.00 Constipation, unspecified (principal); S39.012A Strain of muscle, fascia and tendon of lower back, initial encounter; E86.9 Volume depletion, unspecified; Z87.891 Personal history of nicotine dependence; Z79.82 Long term (current) use of aspirin; X58.XXXA Exposure to other specified factors, initial encounter
CPT/HCPCS: Q9967

== ENCOUNTER 2017-01-26 10:36 | Emergency (ER) | payer OTHER ==
[2017-01-26 10:40] VITALS: RESP 18
--- NOTE | 2017-01-26 12:22 | EDPHY ---
H & P Time Seen by Provider: 01/26/17 12:00 HPI/ROS: HPI Lower abdominal pain. 36-year-old male by private vehicle with his significant other. This patient has a recent history of a coronary catheterization. I saw this patient in the emergency department with complaint of chest pain and an elevated troponin 2 weeks back. His workup during that time included PCI as well as CT angiogram of his chest. The studies were unremarkable. His chest pain and elevated troponin were attributed to possible transient thrombotic event verses coronary artery vasospasm. Since being released from the hospital he has had complaints of constipation and lower abdominal pain. He was then seen in the emergency department again for this complaint as well as back pain several days later. He had a CT scan of his abdomen and pelvis with IV contrast at that time which was unremarkable. This was January 22. He also had a lumbar x-ray series which was unremarkable. He returns to the emergency department complaining of intermittent lower abdominal cramping and only being able have small hard bowel movements. He has not been vomiting. He ate earlier today. No fever. No other complaints. ROS: Constitutional: No fever, no chills. No weakness. Eyes: No discharge. No changes in vision. ENT: No sore throat. No nasal congestion or rhinorrhea. Respiratory: No cough. No shortness of breath. Cardiac: No chest pain, no palpitations. Gastrointestinal: As above, no vomiting, no diarrhea. Genitourinary: No hematuria. No dysuria or increased frequency with urination. Musculoskeletal: No back pain. No neck pain. No myalgias or arthralgias. Skin: No rashes. Neurological: No headache. No focal weakness or altered sensation. Past medical history: As above. Social history: He is here with significant other. He is an it senior software engineer java. No alcohol. Nonsmoker. Physical Exam: General Appearance: Alert, no distress. This patient is responding to questions appropriately and in full sentences. This patient appears well- hydrated and well-nourished. Eyes: Pupils equal and round no pallor or injection. No lid edema, erythema or injection. Respiratory: There are no retractions, lungs are clear to auscultation with good air movement bilaterally. Cardiovascular: Regular rate and rhythm. No murmur. Gastrointestinal: Abdomen is soft and nontender, no masses, bowel sounds normal. No focal tenderness at McBurney's point. No Walker sign. Neurological: Motor sensory function is grossly intact. Cranial nerves are normal. Gait is normal. Skin: Warm and dry, no rashes. Musculoskeletal: Neck is supple and nontender. Extremities are symmetrical. All joints range without pain or impingement. Psychiatric: No agitation. No depression. Database: EKG: Imaging: Procedures: Emergency department course: Vital signs reviewed. Tachycardia noted. I reviewed his previous medical records. I discussed the results from these previous studies with him. He has a benign abdomen. Likely etiology of his pain is constipation. He reports that he tried a salt water enema at home without much relief. He will be given a soapsuds enema here. 1:45 p.m., patient re-evaluated. He is resting comfortably at this time. He feels much better. I discussed my review of his medical records. He had a good -sized bowel movement and feels much better after this. Plan will be to send him home [facility] his [facility]. Repeat abdominal exam is soft, nontender nondistended. He will follow up with his primary care physician next week for re-evaluation. Return to emergency department precautions were reviewed with him thoroughly. All of his questions were answered. He was discharged in good condition. Differential Diagnosis: The differential diagnosis on this patient includes but is not limited to constipation. Bowel obstruction, ureterolithiasis, appendicitis, colitis, cholecystitis, volvulus, other surgical etiology unlikely. This represents a partial list of diagnoses considered. These considerations are based on history , physical exam, past history, reassessment and diagnostic testing. Smoking Status: Former smoker Constitutional: Initial Vital Signs Temperature (C) 36.6 C 01/26/17 10:37 Heart Rate 119 H 01/26/17 10:37 Respiratory Rate 18 01/26/17 10:37 Blood Pressure 123/91 H 01/26/17 10:37 O2 Sat (%) 99 01/26/17 10:37 O2 Delivery Mode Room Air Allergies/Adverse Reactions: No Known Allergies Allergy (Verified 01/22/17 21:18) Home Medications: Medication Instructions Recorded Aspirin [Aspirin 81mg (*)] 81 mg PO DAILY tab.chew 01/22/17 Atorvastatin Calcium [Lipitor 20 20 mg PO DAILY #30 tab 01/22/17 mg (*)] Clopidogrel Bisulfate [Plavix (*)] 75 mg PO DAILY #30 tab 01/22/17 Colace 01/26/17 Miralax 17 gm (*) 01/26/17 Medical Decision Making - Data Points Medications Given: Discontinued Medications Polyethylene Glycol/Electrolytes (Gavilyte - G) 4,000 ml PO ONCE ONE Stop: 01/26/17 13:47 Last Admin: 01/26/17 13:58 Dose: 4,000 ml Departure - Departure Disposition: Home, Routine, Self-Care Clinical Impression: Abdominal pain, Constipation Condition: Good Instructions: Constipation (ED), Acute Abdominal Pain (ED) Additional Instructions: Read and follow provided instructions. Follow-up with your primary care physician next week for re-evaluation. Take medication as prescribed. GoLYTELY prep. Take 1/2 prep which is 2000 mL as directed for treatment of constipation. Be near bathroom. Return to the emergency department for worsening abdominal pain, persisting abdominal pain, fever, vomiting or other serious concerns. Referrals: NONE *PRIMARY CARE P,. [Primary Care Provider] - As per Instructions
[2017-01-26 13:29] VITALS: BP 113/78; PULSE 102; TEMP 98.6; O2SAT 97
[2017-01-26] MEDS ORDERED: PEG 3350/NA SULF,BICARB,CL/KCL (GAVILYTE-G) 4000 ML BTL PO ONE (13:46)
== END 2017-01-26 13:59 | disposition home or self-care (01) ==
DX: K59.00 Constipation, unspecified (principal); Z79.82 Long term (current) use of aspirin; Z87.891 Personal history of nicotine dependence

== ENCOUNTER 2017-12-01 15:26 | Emergency (ER) | payer OTHER ==
[2017-12-01] MEDS ORDERED: NS 1,000 ML IV ONE (15:49)
--- NOTE | 2017-12-01 15:52 | EDPHY ---
H & P Stated Complaint: EXERTIONAL SYNCOPE/O PLAVIX Time Seen by Provider: 12/01/17 15:40 HPI/ROS: CHIEF COMPLAINT: Vasovagal syncope HISTORY OF PRESENT ILLNESS: The patient presents the ED after an episode of syncope. 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 This is a new exercise for the patient. After his workout he was sitting on a couch and stood up. He developed lightheadedness and passed out. He did not sustain significant injury. He states he now feels back to normal. His past medical history is significant for the fact that approximately a year ago he developed crushing chest pain and presented to the emergency department with ischemic changes on his EKG. The patient was noted to rule in with an elevated troponin. The patient was ultimately taken for angiogram which demonstrated no coronary artery disease and had a CT angiogram of the chest which was normal. Echocardiogram was also unremarkable. The patient is currently maintained on Plavix. The patient did not strike his head or lose consciousness. He has no acute traumatic complaints at this point time. The patient denies any history of a recent exertional chest pain or shortness of breath. The patient does report a history of having vasovagal episodes with some frequency. REVIEW OF SYSTEMS: A comprehensive 10 point review of systems is otherwise negative aside from elements mentioned in the history of present illness. Source: Patient - Personal History Current Tetanus Diphtheria and Acellular Pertussis (TDAP): Unsure Tetanus Vaccine Date: LESS THAN 10 YEARS - Medical/Surgical History Hx Asthma: No Hx Chronic Respiratory Disease: No Hx Diabetes: No Hx Cardiac Disease: Yes Hx Renal Disease: No Hx Cirrhosis: No Hx Alcoholism: No Hx HIV/AIDS: No Hx Splenectomy or Spleen Trauma: No Other PMH: MIGRAINES, HEART CATH, FOUND ?LEAKY VALVE - Social History Smoking Status: Former smoker - Physical Exam Exam: General Appearance: Alert, no distress Eyes: Pupils equal and round no pallor or injection ENT, Mouth: Mucous membranes moist Respiratory: There are no retractions, lungs are clear to auscultation Cardiovascular: Regular rate and rhythm Gastrointestinal: Abdomen is soft and nontender, no masses, bowel sounds normal Neurological: A&O, normal motor function, normal sensory exam, normal cranial nerves Skin: Warm and dry, no rashes Musculoskeletal: Neck is supple nontender Extremities: symmetrical, full range of motion Psychiatric: Patient is oriented X 3, there is no agitation Constitutional: Initial Vital Signs Temperature (C) 36.6 C 12/01/17 15:28 Heart Rate 87 12/01/17 15:28 Respiratory Rate 18 12/01/17 15:28 Blood Pressure 130/82 H 12/01/17 15:28 O2 Sat (%) 98 12/01/17 15:28 O2 Delivery Mode Room Air Allergies/Adverse Reactions: No Known Allergies Allergy (Verified 12/01/17 15:27) Home Medications: Medication Instructions Recorded Aspirin [Aspirin 81mg (*)] 81 mg PO DAILY tab.chew 01/22/17 Clopidogrel Bisulfate [Plavix (*)] 75 mg PO DAILY #30 tab 01/22/17 Medical Decision Making - Diagnostics EKG Interpretation: EKG: Complete interpretation has been separately recorded in the [facility] archive. Summary impression: Sinus rhythm, rate 94, no ischemic changes noted ED Course/Re-evaluation: The patient presents to the ED after a likely vasovagal episode. He had an IV established. He received a L of normal saline. I reviewed the results of the patient's past workup including his angiogram, CT scan and echocardiogram. Initial EKG demonstrates no evidence of ischemia. Patient's troponin is normal. CBC and basic metabolic panel are within normal limits. Patient was placed on a letterset press set up operator for an hour and half in the emergency department without evidence of arrhythmia. The patient denies any chest pain or shortness of breath. He is up and ambulatory without acute complaints. At this point time I do feel comfortable discharging the patient to home in the absence of any ongoing symptoms. Patient has been advised to return to the ED for any recurrent syncope, chest pain, shortness of breath or other concerns. The patient will continue to follow up with his primary care provider and digester hand as needed. Differential Diagnosis: Differential diagnosis considered includes myocardial infarction, dehydration, vasovagal episode, metabolic derangement, arrhythmia - Data Points Laboratory Results: Laboratory Results 12/01/17 15:55 12/01/17 15:55 12/01/17 12/01/17 15:55 15:55 WBC 16.86 10^3/uL H 10^3/uL (3.80-9.50) RBC 5.16 10^6/uL 10^6/uL (4.40-6.38) Hgb 15.6 g/dL g/dL (13.7-17.5) Hct 44.5 % % (40.0-51.0) MCV 86.2 fL fL (81.5-99.8) MCH 30.2 pg pg (27.9-34.1) MCHC 35.1 g/dL g/dL (32.4-36.7) RDW 12.2 % % (11.5-15.2) Plt Count 241 10^3/uL 10^3/uL (150-400) MPV 10.5 fL fL (8.7-11.7) Neut % (Auto) 84.7 % H % (39.3-74.2) Lymph % (Auto) 9.9 % L % (15.0-45.0) Floyd % (Auto) 4.0 % L % (4.5-13.0) Eos % (Auto) 0.9 % % (0.6-7.6) Baso % (Auto) 0.2 % L % (0.3-1.7) Nucleat RBC Rel Count 0.0 % % (0.0-0.2) Absolute Neuts (auto) 14.27 10^3/uL H 10^3/uL (1.70-6.50) Absolute Lymphs (auto) 1.67 10^3/uL 10^3/uL (1.00-3.00) Absolute Monos (auto) 0.68 10^3/uL 10^3/uL (0.30-0.80) Absolute Eos (auto) 0.15 10^3/uL 10^3/uL (0.03-0.40) Absolute Basos (auto) 0.04 10^3/uL 10^3/uL (0.02-0.10) Absolute Nucleated RBC 0.00 10^3/uL 10^3/uL (0-0.01) Immature Gran % 0.3 % % (0.0-1.1) Immature Gran # 0.05 10^3/uL 10^3/uL (0.00-0.10) Sodium 137 mEq/L mEq/L (135-145) Potassium 3.9 mEq/L mEq/L (3.3-5.0) Chloride 102 mEq/L mEq/L (97-110) Carbon Dioxide 24 mEq/l mEq/l (22-31) Anion Gap 11 mEq/L mEq/L (6-14) BUN 20 mg/dL mg/dL (7-23) Creatinine 1.0 mg/dL mg/dL (0.7-1.3) Estimated GFR > 60 Glucose 105 mg/dL H mg/dL (70-100) Calcium 9.2 mg/dL mg/dL (8.5-10.4) Medications Given: Discontinued Medications Sodium Chloride (Ns) 1,000 mls @ 0 mls/hr IV EDNOW ONE; Wide Open PRN Reason: Protocol Stop: 12/01/17 15:50 Last Admin: 12/01/17 16:03 Dose: 1,000 mls Departure - Departure Disposition: Home, Routine, Self-Care Clinical Impression: Vasovagal episode Condition: Good Instructions: Syncope (DC) Additional Instructions: 1. Please try to increase your fluid intake when exercising as mild dehydration likely contributed to your symptoms today. 2. Please return to the ED for any recurrent passing out, chest pain, shortness of breath or other concerns. 3. The workup in the emergency department today is unrevealing for evidence of a cardiac condition, significant blood loss or other concerning finding. 4. Follow up with your primary care provider as scheduled.
[2017-12-01 16:13] LABS: PLATELET COUNT 241 10^3/uL (150-400)
--- NOTE | 2017-12-01 17:04 | CPEKG ---
Test Reason : OPEN Blood Pressure : / mmHG Vent. Rate : 094 BPM Atrial Rate : 096 BPM P-R Int : 147 ms QRS Dur : 100 ms QT Int : 372 ms P-R-T Axes : 059 019 014 degrees QTc Int : 466 ms Sinus rhythm Confirmed by Barrington Roy ([id number]) on 12/01/2017 5:04:26 PM Referred By: Confirmed By:Barrington Roy
[2017-12-01 17:24] VITALS: BP 131/76
== END 2017-12-01 17:23 | disposition home or self-care (01) ==
DX: R55 Syncope and collapse (principal); E86.9 Volume depletion, unspecified; Z87.891 Personal history of nicotine dependence
CPT/HCPCS: 84484-PO